=== PATIENT | female | born 1985 | race Two or more races ===

== ENCOUNTER 2024-12-25 09:35 | Day surgery (SDC) | payer MEDICAID, SELFPAY ==
[2024-12-23 08:55] VITALS: BMI 28.8
[2024-12-23 09:55] LABS: Basophils # (Auto) 0.0 Thou/mm3 (0.0-0.2); Basophils % (Auto) 1 % (0-2.5); Eosinophils # (Auto) 0.2 Thou/mm3 (0.0-0.5); Eosinophils % (Auto) 5 % (0-10); Hematocrit 29.0 % (36.0-46.0); Immature Granulocytes Auto 0.01 Thou/mm3 (0.00-0.00); Lymphocytes # (Auto) 1.3 Thou/mm3 (1.0-4.8); Lymphocytes % (Auto) 33 % (10-50); Mean Corpuscular HGB Conc 30.3 g/dl (31.0-37.0); Mean Corpuscular Hemoglobin 23.3 pg (25.0-35.0); Mean Corpuscular Volume 77 fL (80-100); Monocytes # (Auto) 0.3 Thou/mm3 (0.0-0.8); Monocytes % (Auto) 7 % (0-12); Neutrophils # (Auto) 2.1 Thou/mm3 (1.8-7.7); Neutrophils % (Auto) 54 % (37-80); Nucleated Red Blood Cell # 0.00 Thou/mm3 (0.00-0.00); Nucleated Red Blood Cell % 0 /100 WBC (0); Platelet Count 296 Thou/mm3 (140-440); RDW Standard Deviation 45.5 fL (36.4-46.3); Red Blood Count 3.77 Miln/mm3 (4.00-5.20); White Blood Count 3.8 Thou/mm3 (3.6-11.0)
[2024-12-23 10:01] LABS: INR 1.0 (0.9-1.3); Partial Thromboplastin Time 25.3 Seconds (22.0-36.0); Prothrombin Time 10.7 Seconds (9.0-12.2)
[2024-12-23 10:04] LABS: Hemoglobin 8.8 g/dL (12.0-16.0)
[2024-12-23 10:08] LABS: Anion Gap 9 (7-16); BUN/Creatinine Ratio 13 Ratio (12-20); Blood Urea Nitrogen 13 mg/dL (9-23); Calcium 8.7 mg/dL (8.3-10.6); Carbon Dioxide 27.0 mMol/L (20.0-31.0); Chloride 108 mMol/L (98-107); Creatinine (Component) 1.0 mg/dL (0.6-1.3); Estimated Creatinine Clearance 83.0 mL/min (>60); Glucose 95 mg/dL (74-106); Osmolality,Calculated 286 (275-295); Potassium 3.9 mMol/L (3.4-5.1); Sodium 144 mMol/L (136-145); eGFR > 60 See Note
[2024-12-25] VITALS (7 sets, daily range): BP systolic 112–131; BP diastolic 72–83; PULSE 56–76; RESP 12–18; TEMP 36.3–36.8; O2SAT 100; BMI 27.9
--- NOTE | 2024-12-25 12:11 | PD.SUROPNT ---
Date of Procedure 12/25/24 Pre Op Diagnosis Symptomatic varicose veins bilateral lower extremities Post Op Diagnosis Same as pre-op diagnosis Procedure Varicose vein excisions in both lower extremities through 27 incisions on the left and 6 incisions on the right Findings All marked varicose veins were successfully removed or disrupted. Most of these veins were small and fragile and although easily disrupted they tore easily and were difficult to remove Procedure Description With the patient standing in the preop area all varicose veins to removed were carefully marked with a sharpie pen. The patient was then brought to the operating room and general anesthesia was induced. The operation was performed by making a small skin janie in the marked areas with a #11 blade then bluntly enlarging the incision with a mosquito clamp and sequentially excising or disrupting the veins. But all marked veins were treated the leg was cleaned, dried and Steri-Strips were applied to the incisions. Sterile dressing was then applied with gauze Kerlix and Julian wrap. The patient woke well from anesthesia and was moved to recovery in stable condition having tolerated the procedure well Anesthesia other (Laryngeal mask anesthesia) Implants Implants comments: None Pathology / specimen Other (Bilateral lower extremity varicose veins) Estimated Blood Loss 50 Condition Stable Disposition PACU Surgeon Adrian Bryant MD Surgical Staff Operation Date: 12/25/24 11:30 Case Staff Anesthesiologist: Castro Antoine RN First Assistant: Emily Olivas
--- NOTE | 2024-12-25 12:27 | SUR.PHASEI ---
1227: Pt. AAOx4, vitals stable, breathing unlabored, no complaint of pain or nausea, dressing to bilateral legs CDI, no active bleed noted, bilateral dorsalis pedis pulses strong and regular, cap refill to bilateral feet less than 3 seconds, report received from MD Antoine and Edil DAUGHERTY.
--- NOTE | 2024-12-25 13:27 | SUR.PHASEII ---
1327: Pt. AAOx4, vitals stable, breathing unlabored, no complaint of pain or nausea, dressing to bilateral legs CDI, no active bleed noted, had pt. march in place for 2 minutes to assess for bleed noted, no bleed noted, pt. tolerated sips of juice well, pt. ambulated to wheelchair with steady gait and no assist, no complications. Gave discharge instructions to the pt. and her ride, both verbalized understanding and had no further questions. Pt. left with all personal belongings.
== END 2024-12-25 13:27 | disposition home or self-care (01) ==
PROVIDERS: PCP Family Medicine; Referring Provider Surgery Vascular Surgery; Visit Provider Surgery Vascular Surgery
PROC: (CPT 37785; principal; 2024-12-25 11:15)
DX: I83.813 Varicose veins of bilateral lower extremities with pain (principal)
CPT/HCPCS: 37799; 37766; 36415; 80048; 85025; 85610; 85730; 86850; 86900; 86901; A4649; J0131; J0461; J0690; J1100; J2250; J2405; J2704; J3010; J3490